=== PATIENT | female | born 1985 | race Caucasian/White ===

== ENCOUNTER 2021-11-21 17:23 | Emergency (ER) | payer BC ==
[~2021-11-21] VITALS: Ht 160 cm; Wt 93.0 kg
[2021-11-21] MEDS ORDERED: MECLIZINE HCL25 MG PO (19:08)
[2021-11-21] MEDS ORDERED: NASAL DECONGEST30 MG PO (19:08)
== END 2021-11-21 20:00 | disposition home or self-care (01) ==
LOC: ED 17:23
DX: H83.03 Labyrinthitis, bilateral (principal)
CPT/HCPCS: A9270; J1100

== ENCOUNTER 2023-04-09 11:19 | Emergency (ER) | payer BC ==
[~2023-04-09] VITALS: Ht 160 cm; Wt 88.9 kg
[~2023-04-09 11:19] MED LIST: MECLIZINE HCL25 MG PO; NASAL DECONGEST30 MG PO
[2023-04-09 12:37] VITALS: BP 140/99
== END 2023-04-09 12:38 | disposition home or self-care (01) ==
LOC: ED 11:19
DX: S63.501A Unspecified sprain of right wrist, initial encounter (principal); W51.XXXA Accidental striking against or bumped into by another person, initial encounter; Y93.72 Activity, wrestling
CPT/HCPCS: 73110; 99283-25

== ENCOUNTER 2024-07-18 06:50 | Day surgery (SDC) | payer BC ==
[2024-07-15 16:04] VITALS: BP 130/88
[~2024-07-18] VITALS: Ht 160 cm; Wt 97.7 kg
[~2024-07-18 06:50] MED LIST changes: +HYDROXYZINE HCL10 MG PO; +LACTATED RINGER'S 1,000 ML IV SCH; +SERTRALINE HCL25 MG PO; +WELLBUTRIN SR150 MG PO
[2024-07-18] MEDS ORDERED: LIDOCAINE HCL 1% 5 ML SDV INJ ONE (07:00)
[2024-07-18] MEDS ORDERED: IBLOOD GLUCOSE TEST STRIP 1 EA TEST VI PRN ×2 (07:00→08:45)
[2024-07-18] MEDS ORDERED: CEFAZOLIN SODIUM 2 GM/20 ML SYR IV SCH (07:00)
[2024-07-18] MEDS ORDERED: HEParin SOD (PORCINE) 5,000 UNIT/ML SDV SUB-Q SCH (07:00)
[2024-07-18 07:05] VITALS: BP 155/97
[2024-07-18] MEDS ORDERED: MIDAZOLAM HCL 2 MG/2 ML VIAL ONE (08:11)
[2024-07-18] MEDS ORDERED: KETOROLAC TROMETHAMINE 30 MG/ML VIAL ONE (08:11)
[2024-07-18] MEDS ORDERED: propofoL 200 MG/20 ML VIAL ONE (08:11)
[2024-07-18] MEDS ORDERED: fentaNYL citrate 100 MCG/2 ML VIAL ONE (08:11)
[2024-07-18] MEDS ORDERED: LIDOCAINE HCL 2% 5 ML SDV ONE (08:11)
[2024-07-18] MEDS ORDERED: ondansetron HCL 4 MG/2 ML VIAL ONE (08:11)
[2024-07-18] MEDS ORDERED: BUPIVACAINE HCL 0.25% 50 ML MDV ONE (08:16)
[2024-07-18] MEDS ORDERED: LIDOCAINE 1% W/ EPI 1:200,000 30 ML SDV ONE (08:16)
[2024-07-18] MEDS ORDERED: DEXAMETHASONE SOD PHOS 4 MG/ML VIAL ONE (08:34)
[2024-07-18] MEDS ORDERED: fentaNYL citrate 50 MCG/ML SDV IV PRN (08:45)
[2024-07-18] MEDS ORDERED: PROCHLORPERAZINE EDISYLATE 10 MG/2 ML VIAL IV PRN ×2 (08:45→09:45)
[2024-07-18] MEDS ORDERED: HYDROmorphone HCL 1 MG/ML SYR IV PRN ×2 (08:45→09:45)
[2024-07-18] MEDS ORDERED: droPERidol 5 MG/2 ML VIAL IV PRN (08:45)
[2024-07-18] MEDS ORDERED: ondansetron HCL 4 MG/2 ML VIAL IV PRN ×2 (08:45→09:45)
[2024-07-18] MEDS ORDERED: NALOXONE HCL 0.4 MG SYR IV PRN ×2 (08:45→09:45)
[2024-07-18] MEDS ORDERED: SEVOFLURANE 250 ML BTL INH ONE (09:09)
--- NOTE | 2024-07-18 09:50 | NUR ---
07/18/24 0950 Flores Gordon 0934-PT ARRIVES TO PACU VIA STRETCHER, PT RESTING SEMI FOWLERS, NOT RESPONSIVE TO STIMULI, OPA IN PLACE, VSS ON 6L VIA MASK, RR EVEN AND UNLABORED. 0940-PT AWAKENS ON OWN, OPA REMOVED, AND TITRATED TO RA, VS REMAIN STABLE. PT DENIES PAIN OR NAUSEA. 0950-PT SITTING UP IN BED TALKING W/ THIS RN, DENIES PAIN OR NAUSEA, VSS ON RA.
[2024-07-18 09:58] VITALS: BP 128/86
--- NOTE | 2024-07-18 10:00 | NUR ---
Patient returns to room 6 from PACU via bed. Report taken from MIKE Tanner. Patient is doing well. She denies any pain or nausea. She has gauze and tape to the incision site to her left breast and it is clean, dry, and intact. Ice applied to site. I reviewed with her the discharge criteria and she expressed understanding. Water and jell-o provided to patient. Paper prescription was given to her Mother with her permission to drop it off at the pharmacy. She denies any other needs at this time. bed in lowest position, call light within reach.
[2024-07-18] MEDS ORDERED: OXYCODONE HCL5 MG PO (10:37)
--- NOTE | 2024-07-18 10:55 | NUR ---
Hourly rounding on patient. Patient still denies any nausea or pain. Dressing is clean, dry, and intact. She has drank and ate without any difficulty and she has voided. At this time she has met all of her discharge criteria. She is allowed to get dressed at this time.
[2024-07-18 10:58] VITALS: BP 141/89
--- NOTE | 2024-07-18 11:00 | NUR ---
Patient dressed. IV removed. Discharge instructions were reviewed with patient in detail and she expressed understanding. Her mom is not back from picking up patient's prescription, so patient will remain in room 6 until patient informs me that mom is on her way back. She denies any needs at this time
--- NOTE | 2024-07-18 11:54 | EKG ---
[facility] [address] [facility] [place] [address] Signed Normal sinus rhythm Possible Anterior infarct , age undetermined Abnormal ECG No previous ECGs available Confirmed by Juan Luis Chandra MD ([id number]) on 07/18/2024 11:54:15 AM Electronically Signed By: JUAN LUIS CHANDRA MD 07/18/24 1154 PATIENT NAME: HANNAH ROSE Electrocardiogram DATE OF : 89 PHYSICIAN: JUAN LUIS CHANDRA MD REPORT #: [id number] REPORT IS CONFIDENTIAL AND NOT TO BE RELEASED WITHOUT AUTHORIZATION
--- NOTE | 2024-07-19 09:12 | OR ---
[facility] [address] [place], [place] [address] Signed DATE OF OPERATION: 07/18/2024 SURGEON: Khalida Colunga MD PREOPERATIVE DIAGNOSIS: Left breast/periareolar lesion (9 o'clock). POSTOPERATIVE DIAGNOSIS: Left breast/periareolar lesion (9 o'clock). PROCEDURE: Excision of left breast duct and skin at the 9 o'clock position. ESTIMATED BLOOD LOSS: None. INDICATIONS: Johanna is a 39-year-old female, who has had trouble at the 9 o'clock position of her left breast on the edge of the areola. She has had recurrent infections starting in December of 2023. She has been through several rounds of antibiotics. It has finally settled down. She has had a mammogram and an ultrasound done at [facility] in [place], [place]. Unfortunately, we do not have access to those records at the office visit. However, from the office notes, it sounds like this was all negative. She was asked to see me as a local general surgeon. I explained to Johanna this most likely represents a duct starting at the nipple and coming out as a radius like spoke on a wheel. We started with a radial incision and we have to follow it back towards the nipple to completely excise the duct, otherwise they have a high propensity to recur. She understands this will be a day surgery and she will go home afterwards. There is risk including, but not limited to bleeding, infection, scarring, change in contour of the skin as well as recurrent infections or abscesses. She had expressed understanding and wished to proceed. DESCRIPTION OF PROCEDURE: I met with Johanna and her mom in our preop area. We were all able to identify the small lesion at the 9 o'clock position on the edge of the areola along with our nurse in the room. We marked that appropriately. We have never been able to feel the duct coming back all the way to the nipple. After this, we took Johanna in the operating room and placed in a supine position. She was placed under general LMA anesthesia. She was given preoperative antibiotics along with subcutaneous heparin. SCDs were utilized. She was prepped and draped in the usual sterile fashion. We started with a radial Electronically Signed By: KHALIDA COLUNGA MD 07/19/24 0912 PATIENT NAME: JOHANNA ROSE OPERATIVE REPORT DATE OF : 89 REPORT #: [id number] PHYSICIAN: KHALIDA COLUNGA MD PCP: DARY FARR MD REPORT IS CONFIDENTIAL AND NOT TO BE RELEASED WITHOUT AUTHORIZATION [facility] [address] [place], [place] [address] Signed elliptical incision and we went down and around the lesion. As we worked our way carefully with the needle-tip cautery and a 15 blade knife, we found that indeed there was a duct that was extending all the way to the base of the nipple. We had followed that quite readily with our lacrimal probes. The lateral piece of skin and duct came out initially, then the medial piece we had to extend the incision up to the base of the nipple. We were able to follow that right up to the base of the nipple and there was just a tiny bit there that we cauterized. We then irrigated the wound. The wound was infiltrated with local anesthetic. We put a couple of interrupted 5-0 Monocryl sutures underneath the nipple to bring that tissue together so that the nipple would be everted. We then closed the skin and dermis very carefully with multiple interrupted 5-0 subcuticular Monocryl sutures. The skin edges were reapproximated with a running 5-0 fast absorbing plain gut suture. Dry gauze and tape was applied over the entire area so that no tape was on the nipple or areola. After this, Johanna was awakened from her anesthesia, extubated in the OR, and taken to recovery room in stable condition. Khalida Colunga MD [facility] /[id number] cc: MD Khalida Zabala MD Copies: DARY FARR DMD, ANDREW L MD ~ Electronically Signed By: KHALIDA COLUNGA MD 07/19/24 09 PATIENT NAME: JOHANNA ROSE OPERATIVE REPORT DATE OF : 89 REPORT #: [id number] PHYSICIAN: KHALIDA COLUNGA MD PCP: DARY FARR MD REPORT IS CONFIDENTIAL AND NOT TO BE RELEASED WITHOUT AUTHORIZATION
--- NOTE | 2024-07-22 17:55 | PATH ---
[facility] [address] [place], [place] [address] Signed SPECIMEN(S): A LEFT AREOLAR DUCTAL LESION, LATERAL SPECIMEN(S): B LEFT AREOLAR DUCTAL LESION, MEDIAL SPECIMEN SOURCE: A. LEFT AREOLAR DUCTAL LESION, LATERAL B. LEFT AREOLAR DUCTAL LESION, MEDIAL CLINICAL HISTORY: Left breast lesion. FINAL PATHOLOGIC DIAGNOSIS: A. Right areolar ductal lesion lateral, excisional biopsy: - Skin and underlying subcutaneous fat with marked dermal chronic and acute inflammation - No breast-type tissue identified. - Negative for atypia or malignancy B. Left areolar ductal lesion, medial, excisional biopsy: - Skin and underlying tissue with marked chronic and acute inflammation. - Portion of breast parenchyma showing fibrocystic changes and apocrine metaplasia. - Negative for atypia or malignancy. NA MICROSCOPIC EXAMINATION: Histologic sections of all submitted blocks are examined by light microscopy. These findings, together with the gross examination, support the pathologic diagnosis. GROSS DESCRIPTION: A. The specimen, labeled and designated "Roger Rose, " and designated on the requisition "right areolar ductal lesion lateral," is received in formalin and consists of 1.3 x 0.6 cm ellipse of skin that has been excised to a depth of 1.1 cm. The skin surface is shah-genao and disrupted. The specimen is inked, sectioned, and entirely submitted in cassette A1. B. The specimen, labeled and designated "Roger Rose, " and designated on the requisition "left areolar ductal lesion medial," is received in formalin and consists of 2.0 x 1.1 x 1.1 cm portion of yellow-genao fibroadipose tissue that is partially surfaced by a 1.4 x 0.9 cm ellipse of skin. Skin surface is shah-genao and wrinkled. The specimen is inked, sectioned, and entirely submitted in PATIENT NAME: HANNAH ROSE PATHOLOGY DATE OF : 89 REPORT #: [id number] PHYSICIAN: JOSE LUIS PATHOLOGY PCP: DARY FARR MD REPORT IS CONFIDENTIAL AND NOT TO BE RELEASED WITHOUT AUTHORIZATION [facility] [address] [place], [place] [address] Signed cassettes B1-B2. FB (under the direct supervision of a pathologist) The Gross Description was prepared using a voice recognition system. The report was reviewed for accuracy; however, sound-alike word errors, addition and/or deletions may occur. If there is any question about this report, please contact Client Services. ADDITIONAL NOTES: Immunohistochemical and/or in situ hybridization studies if performed in this case included appropriate positive controls that reacted as expected. This test was developed and its performance characteristics determined by [facility]. It has not been cleared or approved by the U.S. Food and Drug Administration. The FDA has determined that such clearance or approval is not necessary. This test is used for clinical purposes. It should not be regarded as investigational or for research. [facility] is certified under the Clinical Laboratory Improvement Amendments of 1988 (CLIA) as qualified to perform high complexity clinical laboratory testing. PERFORMING LABORATORY: Technical component was performed by [facility], [address] [place], [place] [id number] (CLIA# [id number]). Professional interpretation was performed by [facility], [address] [place] [address] (CLIA#: [id number]). Diagnostician: Kathie Justice MD Pathologist Electronically Signed 07/22/2024 Copies: ~ PATIENT NAME: ROSEHANNAHSHANNON COHN PATHOLOGY DATE OF : 89 REPORT #: [id number] PHYSICIAN: JOSE LUIS PATHOLOGY PCP: DARY FARR MD REPORT IS CONFIDENTIAL AND NOT TO BE RELEASED WITHOUT AUTHORIZATION
== END 2024-07-18 11:15 | disposition home or self-care (01) ==
LOC: DS 06:50
PROVIDERS: ATTEND Colon & Rectal Surgery
PROC: 0HBU0ZZ Excision of Left Breast, Open Approach (ICD-10-PCS; principal; 2024-07-18 08:15)
DX: N63.42 Unspecified lump in left breast, subareolar (principal); N61.0 Mastitis without abscess; F17.210 Nicotine dependence, cigarettes, uncomplicated; Z79.899 Other long term (current) drug therapy
CPT/HCPCS: 00400; 93005; 93010; J0690; J1100; J1644; J1885; J2003; J2250; J2405; J2704; J3010; J7121